=== PATIENT | female | born 1990 | race African-American/Black ===

== ENCOUNTER → 2017-10-20 | Outpatient (REF) | payer OTHER | LOC: M LAB REF 11:50 | DX: J03.90 Acute tonsillitis, unspecified (principal) ==

== ENCOUNTER → 2017-12-16 | Outpatient (CLI) | payer OTHER ==
[~2017-12-16] MED LIST: ISOVUE-370 76% 100ML VIAL (Q9967) As Ordered
== END ==
LOC: M RAD 08:21
DX: J02.9 Acute pharyngitis, unspecified (principal)
CPT/HCPCS: Q9967

== ENCOUNTER → 2018-01-31 | Outpatient (CLI) | payer OTHER ==
[2018-01-31 14:59] LABS: FREE T4 0.95 NG/DL (0.76-1.46); THYROID STIMULATING HORMONE 0.689 uIU/ML (0.358-3.740)
== END ==
LOC: M LAB 13:57
DX: E06.9 Thyroiditis, unspecified (principal)
CPT/HCPCS: 84443

== ENCOUNTER → 2018-04-08 | Outpatient (CLI) | payer OTHER ==
[~2018-04-08] MED LIST changes: +E-Z-GAS II EFFERVESCENT PACKET (SODIUM BICARB./CITRIC ACID/SIMETHICONE) As Ordered; +E-Z-HD 98% w/w 340GM SUSP BTL As Ordered; +E-Z-PAQUE 96% w/w SUSP 176GM BTL As Ordered; -ISOVUE-370 76% 100ML VIAL (Q9967) As Ordered
== END ==
LOC: M RAD 10:48
DX: R13.10 Dysphagia, unspecified (principal)